=== PATIENT | female | born 1960 | race Two or more races ===

== ENCOUNTER 2024-12-05 18:21 | Inpatient (IN) | payer OTHER ==
[~2024-12-05] VITALS: Ht 154.9 cm; Wt 70.0 kg
--- NOTE | 2024-12-05 19:46 | ED.PDOC ---
History of Present Illness HPI Comments 64 y/o F presents with c/c of back pain. Pain onset after sitting down and standing, immediately, back up. Pain radiates anteriorly from her right side. 10/10 in severity. Worse with movement. Sharp in quality. 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 Family History Family History: Unknown Social History Smoker: Non-Smoker Alcohol: Denies ETOH Use Drugs: Denies Drug Use Neurological: reports: left sided numbness All Other Systems: Reviewed and Negative (As per HPI) Physical Exam General Appearance: No Apparent Distress, Normal HEENT: Pharynx Normal Neck: Full Range of Motion, Non-Tender Respiratory: Lungs Clear, No Respiratory Distress, Normal Breath Sounds Cardiovascular: No Edema, No JVD, No Murmur, No Gallop, Normal Peripheral Pulses, Regular Rate/Rhythm Breast Exam: Deferred Gastrointestinal: Diffuse (tenderness), No Organomegaly, No Pulsatile Mass, Normal Bowel Sounds, Soft, Other (neg cva tenderness ) Genitalia: Deferred Pelvic: Deferred Rectal: Deferred Extremities: No calf tenderness, Normal capillary refill, Normal range of motion, No pedal edema Musculoskeletal : Apperance: Normal Neurologic: Alert, No Motor Deficits, Normal Affect, Normal Mood, No Sensory Deficits Cerebellar Function: Normal Reflexes: NOT DONE Skin: Dry, Normal Color, Warm Lymphatic: No Adenopathy Was a procedure done? Was a procedure done?: No Differential Dx Considerations may include: fracture, DJD, sciatica, sprain, among others X-Ray, Labs, Meds, VS Vital Signs Date Time Temp Pulse Resp B/P (MAP) Pulse Ox O2 Delivery O2 Flow Rate FiO2 12/05/24 20:59 98 18 98 Room Air 12/05/24 20:59 98.0 98 19 154/64 (94) 98 98.0 12/05/24 18:23 98.3 108 18 157/92 97 98.3 Lab Test 12/05/24 22:01 12/05/24 21:02 12/05/24 19:43 Range/Units Troponin I High Sensitivity < 3 L < 3 L </=34 ng/L White Blood Count 8.1 4.4-10.8 10^3/uL Red Blood Count 4.29 4.0-5.20 10^6/uL Hemoglobin 12.3 12.2-16.2 g/dL Hematocrit 36.6 36.0-46.0 % Mean Corpuscular Volume 85.3 80.0-100.0 fL Mean Corpuscular Hemoglobin 28.6 28.0-32.0 pg Mean Corpuscular Hemoglobin Concent 33.6 32.0-36.0 g/dL Red Cell Distribution Width 13.9 11.8-14.3 % Platelet Count 290 140-450 10^3/uL Mean Platelet Volume 8.3 6.9-10.8 fL Neutrophils (%) (Auto) 61.2 37.0-80.0 % Lymphocytes (%) (Auto) 29.6 10.0-50.0 % Monocytes (%) (Auto) 6.8 0.0-12.0 % Eosinophils (%) (Auto) 1.5 0.0-7.0 % Basophils (%) (Auto) 0.9 0.0-2.0 % Neutrophils # (Auto) 5.0 1.6-8.6 10 ^3/uL Lymphocytes # (Auto) 2.4 0.4-5.4 10 ^3/uL Monocytes # (Auto) 0.6 0-1.3 10 ^3/uL Eosinophils # (Auto) 0.1 0-0.8 10 ^3/uL Basophils # (Auto) 0.1 0-0.2 10 ^3/uL Nucleated Red Blood Cells 0.0 % Sodium Level 138 136-145 mmol/L Potassium Level 4.0 3.5-5.1 mmol/L Chloride Level 102 98-107 mmol/L Carbon Dioxide Level 24 20-31 mmol/L Anion Gap 12 5-15 Blood Urea Nitrogen 16 9-23 mg/dL Creatinine 0.85 0.550-1.02 mg/dL Glomerular Filtration Rate Calc 77 >90 mL/min BUN/Creatinine Ratio 18.8 10.0-20.0 Serum Glucose 165 H 74-106 mg/dL Hemoglobin A1c 7.4 H <5.7 % A1C Calcium Level 9.7 8.7-10.4 mg/dL Phosphorus Level 3.3 2.4-5.1 mg/dL Magnesium Level 1.7 1.6-2.6 mg/dL Total Bilirubin 0.4 0.2-1.0 mg/dL Aspartate Amino Transferase (AST) 14 13-40 U/L Alanine Aminotransferase (ALT) 10 7-40 U/L Alkaline Phosphatase 121 H 46-116 U/L Total Protein 8.5 H 5.7-8.2 g/dL Albumin 5.0 H 3.2-4.8 g/dL Lipase 39 12-53 U/L Vitamin B12 Level 472 211-911 pg/mL Vitamin D 25-Hydroxy 29.2 L 30.0-100 ng/mL Thyroid Stimulating Hormone (TSH) 1.09 0.55-4.78 uIU/mL Hepatitis B Surface Antigen Pending Hepatitis C Antibody Pending Urine Color Colorless Yellow Urine Clarity Clear Clear Urine pH 6.0 5.0-9.0 Urine Specific [place] 1.009 1.001-1.035 Urine Protein Negative Negative Urine Ketones Negative Negative Urine Blood Negative Negative /uL Urine Nitrite 1+ H Negative Urine Bilirubin Negative Negative Urine Urobilinogen Normal Negative mg/dL Urine Leukocyte Esterase Negative Negative /uL Urine RBC 1 0 - 4 /hpf Urine Microscopic WBC 3 0-5 /HPF Urine Squamous Epithelial Cells Few <5 /hpf Urine Bacteria Many H None Seen /hpf Urine Glucose 4+ H Normal mg/dL Urine Opiates Screen Neg NEGATIVE Urine Fentanyl Screen Neg NEGATIVE Urine Barbiturates Screen Neg NEGATIVE Urine Phencyclidine Screen Neg NEGATIVE Urine Amphetamines Screen Neg NEGATIVE Urine Benzodiazepines Screen Neg NEGATIVE Urine Cocaine Screen Neg NEGATIVE Urine Cannabinoids Screen Neg NEGATIVE Current Medications Medications (Trade) Dose Ordered Sig/[facility] Route Start Time Stop Time Status Last Admin Sodium Chloride 1,000 ml @ 1,000 mls/hr Q1H ONCE IV 12/05/24 20:45 12/05/24 21:44 DC 12/05/24 21:04 Ondansetron HCl (Zofran) 4 mg ONCE ONCE IM 12/05/24 20:45 12/05/24 20:46 DC 12/05/24 22:37 Ceftriaxone Sodium 50 ml @ 100 mls/hr ONCE ONCE IV 12/05/24 21:30 12/05/24 21:59 DC 12/05/24 22:38 Morphine Sulfate 4 mg ONCE ONCE IV 12/05/24 21:30 12/05/24 21:31 DC 12/05/24 22:37 [facility] [id number] [id number] Ph: [phone] DIAGNOSTIC IMAGING Diagnostic Imaging Report : [id number] Signed PATIENT: NATHALIA MOORE ACCT: [id number] UNIT: [id number] : 1960 LOC: ER ROOM / BED: / AGE / SEX: 64 / F ADM STATUS: REG ER SERVICE 31 ORDERING PHYSICIAN: DIANNA GREEN PROCEDURE(s): ABPL - CT AB PEL WO CON-NO ORAL OR IV REASON: diffuse abd pain ORDER NUMBER(s): [id number], ACCESSION NUMBER(s): [id number] Exam: CT CT AB PEL WO CON-NO ORAL OR IV History: diffuse abd pain Comparison Study: None TECHNIQUE: Multidetector CT of the abdomen AND PELVIS without IV contrast. Axial, coronal and sagittal multiplanar reformats were obtained from the axial data set by the technologist. Radiation Dose Information: CT Dose: CTDI volume is 11.54 mGy. Dose-length product is 598.67 mGy*cm FINDINGS: Bibasilar scarring with bronchiectasis. Heart size is within normal limits. Trace pericardial effusion. Liver, spleen, gallbladder, and adrenal glands are unremarkable. 1 cm nodular lesion abutting the pancreatic tail which may represent a small splenule with an exophytic pancreatic lesion not completely excluded. Otherwise, pancreas is unremarkable. Kidneys, ureters and urinary bladder are unremarkable. Uterine wall calcification. Otherwise, uterus and adnexa unremarkable. Gaseous distention of the distal esophagus. Mild gastric wall thickening is most likely from inadequate distention. Small bowel loops are unremarkable. Appendix is unremarkable. Large amount of fecal material within the ascending and transverse colons with small to moderate amount of fecal material within the remainder of the colon. No evidence of intraperitoneal free air or free fluid. No evidence of aortic aneurysm. Mild atherosclerotic calcification of the aorta. No significant lymphadenopathy. Small fat containing umbilical hernia. Minimal body wall wall edema. No evidence of acute osseous abnormalities. IMPRESSION: No evidence of acute abdominopelvic abnormalities. 1 cm nodular lesion abutting the pancreatic tail which may represent a small sp lenule with an exophytic pancreatic lesion not completely excluded. Trace pericardial effusion. Bibasilar fibrotic changes. ATED BY: SILVINA HOLT DO DICTATED DATE/TIME: 12/05/242110 SIGNED BY: SILVINA HOLT DO SIGNED DATE/TIME: 12/05/242110 CC: X-Ray, Labs, Meds, VS Comment MPRESSION: No evidence of acute abdominopelvic abnormalities. 1 cm nodular lesion abutting the pancreatic tail which may represent a small splenule with an exophytic pancreatic lesion not completely excluded. Trace pericardial effusion. Bibasilar fibrotic changes. Time of 1ST Reevaluation: 20:10 Reevaluation 1ST: Unchanged Time of 2ND Reevaluation: 21:28 Reevaluation 2ND: Unchanged Patient Education/Counseling: Treatment, Need For Follow Up Family Education/Counseling: No Family Present SEPSIS Sepsis Screen Date sepsis recognized/suspect: Dec 05, 2024 Time Sepsis recognized/suspect: 1825 Recent Procedure: No On Antibiotic Therapy: No Respiratory Rate >20: No Heart Rate >90: Yes Temp<36 C (96.8 F) or >38.3 C: No SBP <90 or MAP <65 mmHG: No New Acute Mental Status Change: No Is the patient on CPAP, BIPAP,: No Physician Orders Ct Ab Pel Wo Con-No Oral Or Iv (12/05/24 20:32) Electrocardigram (12/05/24 20:46) Electrocardigram (12/05/24 21:46) Urine Bacterial Culture (12/05/24 21:33) Vital Signs Date Time Temp Pulse Resp B/P (MAP) Pulse Ox O2 Delivery O2 Flow Rate FiO2 12/05/24 20:59 98 18 98 Room Air 12/05/24 20:59 98.0 98 19 154/64 (94) 98 98.0 12/05/24 18:23 98.3 108 18 157/92 97 98.3 Laboratory Tests Test 12/05/24 21:02 White Blood Count 8.1 10^3/uL (4.4-10.8) Medications Medications Dose Ordered Sig/Roberto Route Start Time Stop Time Status Last Admin Dose Admin Ceftriaxone Sodium 50 ml @ 100 mls/hr ONCE ONCE IV 12/05/24 21:30 12/05/24 21:59 DC 12/05/24 22:38 Morphine Sulfate 4 mg ONCE ONCE IV 12/05/24 21:30 12/05/24 21:31 DC 12/05/24 22:37 Ondansetron HCl 4 mg ONCE ONCE IM 12/05/24 20:45 12/05/24 20:46 DC 12/05/24 22:37 Sodium Chloride 1,000 ml @ 1,000 mls/hr Q1H ONCE IV 12/05/24 20:45 12/05/24 21:44 DC 12/05/24 21:04 Departure 1 Departure Time of Disposition: 21:22 Impression: Primary Impression: Lesion of pancreas Additional Impressions: Cystitis without hematuria Pericardial effusion Intractable abdominal pain Disposition: ADMITTED INPATIENT Condition: Stable Discharged With: Spouse Critical Care Note Critical Care Time?: No Stability Stability form required: No Heart Score Heart Score: Heart Score Response (Comments) Value History N/A 0 EKG N/A 0 Age N/A 0 Risk Factors N/A 0 Troponin N/A 0 Total 0 I personally scribed for ER ([email or web address]) on 12/05/24 at 19:46. Electronically submitted by Bereket Villegas ([email or web address]). I personally scribed for ER ([email or web address]) on 12/05/24 at 21:18. Electronically submitted by Trisha Gerard ([email or web address]). ER Dec 05, 2024 19:46 DIANNA GREEN [facility] Dec 05, 2024 21:23
[2024-12-05 20:15] LABS: Urine Protein, UAD Negative (Negative)
[2024-12-05] MEDS ORDERED: MORPHINE SULFATE INJ 2 MG/ml SYRG IV ONE (20:45)
[2024-12-05] MEDS: SODIUM CHLORIDE 0.9% 1,000 ML IV ONE (21:04)
[2024-12-05 21:10] LABS: Hematocrit 36.6 % (36.0-46.0); Hemoglobin 12.3 g/dL (12.2-16.2); Mean Corpuscular Hemoglobin 28.6 pg (28.0-32.0); Mean Corpuscular Volume 85.3 fL (80.0-100.0); Nucleated Red Blood Cells % 0.0 %
--- NOTE | 2024-12-05 21:14 | DVH ---
Exam: CT CT AB PEL WO CON-NO ORAL OR IV History: diffuse abd pain Comparison Study: None TECHNIQUE: Multidetector CT of the abdomen AND PELVIS without IV contrast. Axial, coronal and sagitta l multiplanar reformats were obtained from the axial data set by the technologist. Radiation Dose Information: CT Dose: CTDI volume is 11.54 mGy. Dose-length product is 598.67 mGy*cm FINDINGS: Bibasilar scarring with bronchiectasis. Heart size is within normal limits. Trace pericardial effusi on. Liver, spleen, gallbladder, and adrenal glands are unremarkable. 1 cm nodular lesion abutting the pa ncreatic tail which may represent a small splenule with an exophytic pancreatic lesion not completely excluded. Otherwise, pancreas is unremarkable. Kidneys, ureters and urinary bladder are unremarkable. Uterine wall calcification. Otherwise, uterus and adnexa unremarkable. Gaseous distention of the distal esophagus. Mild gastric wall thickening is most likely from inadequa te distention. Small bowel loops are unremarkable. Appendix is unremarkable. Large amount of fecal m aterial within the ascending and transverse colons with small to moderate amount of fecal material wi thin the remainder of the colon. No evidence of intraperitoneal free air or free fluid. No evidence of aortic aneurysm. Mild atherosclerotic calcification of the aorta. No significant lymphadenopathy. Small fat containing umbilical hernia. Minimal body wall wall edema. No evidence of acute osseous ab normalities. IMPRESSION: No evidence of acute abdominopelvic abnormalities. 1 cm nodular lesion abutting the pancreatic tail which may represent a small splenule with an exophyt ic pancreatic lesion not completely excluded. Trace pericardial effusion. Bibasilar fibrotic changes.
[2024-12-05 21:26] LABS: Alanine Aminotransferase 10 U/L (7-40); Anion Gap 12 (5-15); BUN/Creatinine Ratio 18.8 (10.0-20.0); Bilirubin, Total 0.4 mg/dL (0.2-1.0); Blood Urea Nitrogen 16 mg/dL (9-23); Calcium 9.7 mg/dL (8.7-10.4); Carbon Dioxide 24 mmol/L (20-31); Chloride 102 mmol/L (98-107); Lipase 39 U/L (12-53); Potassium 4.0 mmol/L (3.5-5.1); Sodium 138 mmol/L (136-145)
[2024-12-05 21:28] LABS: Albumin 5.0 g/dL (3.2-4.8); Alkaline Phosphatase 121 U/L (46-116); Glucose 165 mg/dL (74-106); Total Protein 8.5 g/dL (5.7-8.2)
[2024-12-05 21:56] LABS: Magnesium 1.7 mg/dL (1.6-2.6)
[2024-12-05] MEDS ORDERED: ONDANSETRON HCL 4 MG/2 ML VIAL IV PRN (22:30)
[2024-12-05] MEDS ORDERED: DEXTROSE (50%) 50ML SYRG IV PRN (22:30)
[2024-12-05 22:37] LABS: Barbiturate Scree,Urine Neg (NEGATIVE); Opiate Scree,Urine Neg (NEGATIVE)
[2024-12-05] MEDS: MORPHINE SULFATE 4 MG/ML SYR/VIAL IV ONE (22:37)
[2024-12-05] MEDS: ONDANSETRON HCL 4 MG/2 ML VIAL IM ONE (22:37)
[2024-12-05 22:38] LABS: Amphetamine Screen, Urine Neg (NEGATIVE); Benzodiazephine Screen, Urine Neg (NEGATIVE); Cannabinoid Screen, Urine Neg (NEGATIVE); Cocaine Screen, Urine Neg (NEGATIVE); Phencyclidine Screen, Urine Neg (NEGATIVE)
--- NOTE | 2024-12-05 23:18 | DVHHPRES ---
History of Present Illness Resident Creating Document: DAQUAN BAILEY RESIDENT History of Present Illness Ms. Oglesby is a 64 year old female with PMHx of type 2 diabetes mellitus, hyperlipidemia, hypertension, cataracts s/p bilateral surgery, UTIs and urinary incontinence, who presented to the ED with chief complaint of back pain. She reports she began to have left-sided abdominal pain described as sharp, in epigastrium, radiating towards the left flank region, 8/10 intensity, aggravated by bending over, without relieving factors. Yesterday she began to have pain radiating to the right flank as well. Additionally refers febrile sensation and urinary tenesmus. Denies nausea, vomiting, dysuria, urinary frequency, diaphoresis, chest pain, and palpitations. Patient states she has had 2 previous UTIs requiring hospitalization (15 [required home IV antibiotics] and 5 years ago respectively). Due to persistence of pain she saw care at the emergency department. On evaluation in the ED, the patient was afebrile, mildly tachycardic, and hypertensive. Initial labs show CBC within normal range, hyperglycemia, and ALP 121. UA is suggestive of UTI. Abdominal CT shows no evidence of acute abdominopelvic abnormalities. She was started on IV fluids, IV pain medication, and IV antibiotics. She was admitted for further workup and management. Cardiovascular: HTN, hyperipidemia Renal/: Other (Urinary incontinence) Endocrine: Diabetes Past Surgical History: Cataract Removal, , Other (Trigger finger repair) Family History: None Smoke: No ALCOHOL: none Drugs: None Lives: with Family Domestic Violence: Neg Review of Systems Review of Systems Constitutional: Denies weight loss, fever and chills. HEENT: Denies changes in vision and hearing. Respiratory: Denies shortness of breath and cough Cardiovascular: Denies chest discomfort or palpitations GI: Refers abdominal pain, Denies abdominal distention, diarrhea : Refers urinary tenesmus, Denies dysuria and urinary frequency. Musculoskeletal: Refers flank pain Skin: Denies rash and pruritus. Neurological: denies dizziness headache vision or hearing problems Allergies: Coded Allergies: NO KNOWN ALLERGIES (Unverified , 12/05/24) Medications Current Medications Medications Dose Ordered Sig/Roberto Route Start Time Stop Time Status Last Admin Dose Admin Acetaminophen 325 mg Q4HP PRN PO 12/05/24 22:30 Enoxaparin Sodium 40 mg DAILY SC 12/06/24 10:00 Ceftriaxone Sodium 50 ml @ 100 mls/hr DAILY@09 IV 12/06/24 09:00 Atorvastatin Calcium 20 mg HS PO 12/06/24 22:00 Lisinopril 5 mg DAILY PO 12/06/24 10:00 Acetaminophen/ Hydrocodone Bitart 1 tab Q6HPRN PRN PO 12/05/24 22:30 Oxybutynin Chloride 5 mg Q12HR PO 12/06/24 10:00 Diagnostic Test (Pha) 1 strip ACHS 12/06/24 07:00 Insulin Human Regular ACHS SC 12/06/24 07:00 Dextrose 50 ml UD PRN IV 12/05/24 22:30 Ondansetron HCl 4 mg Q4HPRN PRN IV 12/05/24 22:30 Exam Vital Signs Vital Signs Date Time Temp Pulse Resp B/P (MAP) Pulse Ox O2 Delivery O2 Flow Rate FiO2 12/05/24 22:59 85 14 124/68 (86) 92 12/05/24 20:59 Room Air 12/05/24 20:59 98.0 98.0 Exam General: The patient alert and oriented in person place and time. Patient following commands HEENT: Normocephalic, atraumatic, normal reactive pupils, EOM intact, pink conjunctiva, pink moist mucous membrane Respiratory/pulmonary: Bilateral chest expansion, no pain on palpation of chest wall, clear lungs bilaterally, vesicular murmurs present in almost all lung duke, no associated crackles or wheezes. Cardiovascular: Normal RRR, normal S1 and S2, no murmurs Abdomen: Abdomen nondistended, normal bowel sounds, soft, pain to palpation in upper abdominal quadrant, bilateral CVA tenderness, no palpable masses. Extremities: No deformities, there is no peripheral edema present at the lower extremities, normal pulses Skin: No rashes or pruritus, there is no sacral edema present at this time. Neurological: Intact cranial nerves with no focal neurologic deficits Labs/Xrays Labs Test 12/05/24 22:01 12/05/24 21:02 12/05/24 19:43 Range/Units Troponin I High Sensitivity < 3 L </=34 ng/L White Blood Count 8.1 4.4-10.8 10^3/uL Red Blood Count 4.29 4.0-5.20 10^6/uL Hemoglobin 12.3 12.2-16.2 g/dL Hematocrit 36.6 36.0-46.0 % Mean Corpuscular Volume 85.3 80.0-100.0 fL Mean Corpuscular Hemoglobin 28.6 28.0-32.0 pg Mean Corpuscular Hemoglobin Concent 33.6 32.0-36.0 g/dL Red Cell Distribution Width 13.9 11.8-14.3 % Platelet Count 290 140-450 10^3/uL Mean Platelet Volume 8.3 6.9-10.8 fL Neutrophils (%) (Auto) 61.2 37.0-80.0 % Lymphocytes (%) (Auto) 29.6 10.0-50.0 % Monocytes (%) (Auto) 6.8 0.0-12.0 % Eosinophils (%) (Auto) 1.5 0.0-7.0 % Basophils (%) (Auto) 0.9 0.0-2.0 % Neutrophils # (Auto) 5.0 1.6-8.6 10 ^3/uL Lymphocytes # (Auto) 2.4 0.4-5.4 10 ^3/uL Monocytes # (Auto) 0.6 0-1.3 10 ^3/uL Eosinophils # (Auto) 0.1 0-0.8 10 ^3/uL Basophils # (Auto) 0.1 0-0.2 10 ^3/uL Nucleated Red Blood Cells 0.0 % Sodium Level 138 136-145 mmol/L Potassium Level 4.0 3.5-5.1 mmol/L Chloride Level 102 98-107 mmol/L Carbon Dioxide Level 24 20-31 mmol/L Anion Gap 12 5-15 Blood Urea Nitrogen 16 9-23 mg/dL Creatinine 0.85 0.550-1.02 mg/dL Glomerular Filtration Rate Calc 77 >90 mL/min BUN/Creatinine Ratio 18.8 10.0-20.0 Serum Glucose 165 H 74-106 mg/dL Hemoglobin A1c 7.4 H <5.7 % A1C Calcium Level 9.7 8.7-10.4 mg/dL Phosphorus Level 3.3 2.4-5.1 mg/dL Magnesium Level 1.7 1.6-2.6 mg/dL Total Bilirubin 0.4 0.2-1.0 mg/dL Aspartate Amino Transferase (AST) 14 13-40 U/L Alanine Aminotransferase (ALT) 10 7-40 U/L Alkaline Phosphatase 121 H 46-116 U/L Total Protein 8.5 H 5.7-8.2 g/dL Albumin 5.0 H 3.2-4.8 g/dL Lipase 39 12-53 U/L Vitamin B12 Level 472 211-911 pg/mL Vitamin D 25-Hydroxy 29.2 L 30.0-100 ng/mL Thyroid Stimulating Hormone (TSH) 1.09 0.55-4.78 uIU/mL Urine Color Colorless Yellow Urine Clarity Clear Clear Urine pH 6.0 5.0-9.0 Urine Specific [place] 1.009 1.001-1.035 Urine Protein Negative Negative Urine Ketones Negative Negative Urine Blood Negative Negative /uL Urine Nitrite 1+ H Negative Urine Bilirubin Negative Negative Urine Urobilinogen Normal Negative mg/dL Urine Leukocyte Esterase Negative Negative /uL Urine RBC 1 0 - 4 /hpf Urine Microscopic WBC 3 0-5 /HPF Urine Squamous Epithelial Cells Few <5 /hpf Urine Bacteria Many H None Seen /hpf Urine Glucose 4+ H Normal mg/dL Urine Opiates Screen Neg NEGATIVE Urine Fentanyl Screen Neg NEGATIVE Urine Barbiturates Screen Neg NEGATIVE Urine Phencyclidine Screen Neg NEGATIVE Urine Amphetamines Screen Neg NEGATIVE Urine Benzodiazepines Screen Neg NEGATIVE Urine Cocaine Screen Neg NEGATIVE Urine Cannabinoids Screen Neg NEGATIVE SEPSIS Sepsis Screen Date sepsis recognized/suspect: Dec 05, 2024 Time Sepsis recognized/suspect: 1825 Recent Procedure: No On Antibiotic Therapy: No Respiratory Rate >20: No Heart Rate >90: Yes Temp<36 C (96.8 F) or >38.3 C: No SBP <90 or MAP <65 mmHG: No New Acute Mental Status Change: No Is the patient on CPAP, BIPAP,: No Physician Orders Ct Ab Pel Wo Con-No Oral Or Iv (12/05/24 20:32) Electrocardigram (12/05/24 20:46) Electrocardigram (12/05/24 21:46) Troponin-I Hs (12/05/24 23:46) Urine Bacterial Culture (12/05/24 21:33) Complete Blood Count (12/06/24 04:00) Basic Metabolic Panel (12/06/24 04:00) Admit (12/05/24 22:17) Allergies (12/05/24 22:17) Code Status (12/05/24 22:17) Acetaminophen Tablet (Tylenol Tablet) (12/05/24 22:30) Enoxaparin Sodium (Lovenox) (12/06/24 10:00) Condition: Stable (12/05/24 22:17) Stat Ekg For Chest Pain (12/05/24 22:17) Notify Of Changes From Base (12/05/24 22:17) Emergency Dysrhythmia Protocol (12/05/24 22:17) Rhythm Strips Once Every Shift (12/05/24 22:17) Ceftriaxone 1gm/50ml (Rocephin) (12/06/24 09:00) Atorvastatin (Lipitor) (12/06/24 22:00) Lisinopril Tablet (Zestril Tablet) (12/06/24 10:00) Hydrocodone-Acet 5/325mg Tab (Marcy 532 (12/05/24 22:30) Oxybutynin Chloride Tablet (Ditropan Tab (12/06/24 10:00) Glucose Blood (Accu-Chek Comfort Curve T (12/06/24 07:00) Insulin R (Human) (Insulin R) (12/06/24 07:00) Dextrose 50% Syringe (12/05/24 22:30) Consistent Carb(Ccho)Diabetes (12/06/24 Breakfast) Ondansetron Hcl (Zofran) (12/05/24 22:30) Vital Signs Date Time Temp Pulse Resp B/P (MAP) Pulse Ox O2 Delivery O2 Flow Rate FiO2 12/05/24 22:59 85 14 124/68 (86) 92 12/05/24 22:37 88 16 149/75 12/05/24 20:59 98 18 98 Room Air 12/05/24 20:59 98.0 98 19 154/64 (94) 98 98.0 12/05/24 18:23 98.3 108 18 157/92 97 98.3 Laboratory Tests Test 12/05/24 21:02 White Blood Count 8.1 10^3/uL (4.4-10.8) Medications Medications Dose Ordered Sig/Roberto Route Start Time Stop Time Status Last Admin Dose Admin Ceftriaxone Sodium 50 ml @ 100 mls/hr ONCE ONCE IV 12/05/24 21:30 12/05/24 21:59 DC 12/05/24 22:38 100 MLS/HR Morphine Sulfate 4 mg ONCE ONCE IV 12/05/24 21:30 12/05/24 21:31 DC 12/05/24 22:37 4 MG Ondansetron HCl 4 mg ONCE ONCE IM 12/05/24 20:45 12/05/24 20:46 DC 12/05/24 22:37 4 MG Sodium Chloride 1,000 ml @ 1,000 mls/hr Q1H ONCE IV 12/05/24 20:45 12/05/24 21:44 DC 12/05/24 21:04 1,000 MLS/HR Assessment/Plan Assessment/Plan Assessment and Plan: Complicated UTI R/o Pyelonephritis - NS 1000 cc bolus once - Morphine 4 mg IV once - Morphine 2 mg IV once - Ceftriaxone 1 g IV daily - Marcy 5/325 mg q 6 hours PRN - Acetaminophen 325 mg PO q 4 hours PRN - Urine cultures have been ordered Uncontrolled type 2 diabetes mellitus with hyperglycemia, HbA1c 7.4 - Mild SSI - Accu-Cheks - Carbohydrate Consistent Diet Hypertension - Monitor BP - Continue lisinopril 5 mg PO daily Hyperlipidemia - Continue Atorvastatin 20 mg PO daily Urinary Incontinence - Oxybutyin 5 mg q12 hrs PO Diet: Carbohydrate consistent diet DVT prophylaxis: Enoxaparin 40 mg SC daily GI prophylaxis: Not indicated Case discussed with Dr. Devries Goals of care discussed with the patient and her son at bedside over 27 minutes. DNR/DNI. Plan discussed with: Patient, Son, Other (Nurses) My Orders Orders - DAQUAN BAILEY RESIDENT Procedure Category Date Status Time Urine Bacterial JESI 12/05/24 In Process Culture 21:33 Complete Blood Count LAB 12/06/24 Verified 04:00 Basic Metabolic Panel LAB 12/06/24 Verified 04:00 Admit ADMIT 12/05/24 Transmitted 22:17 Allergies ALFONSO 12/05/24 In Process 22:17 Code Status CODE 12/05/24 Transmitted 22:17 Acetaminophen Tablet PHA 12/05/24 In Process (Tylenol Tablet) 22:30 Enoxaparin Sodium PHA 12/06/24 In Process (Lovenox) 10:00 Condition: Stable ALFONSO 12/05/24 In Process 22:17 Stat Ekg For Chest ALFONSO 12/05/24 In Process Pain 22:17 Notify Of Changes ALFONSO 12/05/24 In Process From Base 22:17 Emergency Dysrhythmia ALFONSO 12/05/24 In Process Protocol 22:17 Rhythm Strips Once ALFONSO 12/05/24 In Process Every Shift 22:17 Ceftriaxone 1gm/50ml PHA 12/06/24 In Process (Rocephin) 09:00 Atorvastatin (Lipitor) PHA 12/06/24 In Process 22:00 Lisinopril Tablet PHA 12/06/24 In Process (Zestril Tablet) 10:00 Hydrocodone-Acet PHA 12/05/24 In Process 5/325mg Tab (Marcy 22:30 Oxybutynin Chloride PHA 12/06/24 In Process Tablet (Ditropan Tab 10:00 Glucose Blood PHA 12/06/24 In Process (Accu-Chek Comfort 07:00 Insulin R (Human) PHA 12/06/24 In Process (Insulin R) 07:00 Dextrose 50% Syringe PHA 12/05/24 In Process 22:30 Consistent DIET 12/06/24 Transmitted Carb(Ccho)Diabetes Breakfast Ondansetron Hcl PHA 12/05/24 In Process (Zofran) 22:30 Date of Service: Dec 05, 2024 Billing Provider: KAT THAPA MD Common Visit Codes: [id number] INP/OBS CARE (HIGH) Secondary Visit Codes: [id number] CARE PLAN 30 MINUTES DAQUAN BAILEY RESIDENT Dec 05, 2024 23:18 TRINIDAD NAVAS RESIDENT Dec 06, 2024 00:46
[2024-12-05 23:28] VITALS: BP 142/71; PULSE 81; RESP 18; RESP 19; TEMP 98.5; O2SAT 96
[2024-12-05 23:29] VITALS: PULSE 81; RESP 19; O2SAT 96
[2024-12-06] VITALS (8 sets, daily range): BP systolic 105–126; BP diastolic 59–84; PULSE 63–84; RESP 16–19; TEMP 97.2–97.9; O2SAT 2–98
[2024-12-06 00:18] LABS: Hematocrit 35.9 % (36.0-46.0); Hemoglobin 12.0 g/dL (12.2-16.2); Mean Corpuscular Hemoglobin 28.4 pg (28.0-32.0); Mean Corpuscular Volume 85.2 fL (80.0-100.0); Nucleated Red Blood Cells % 0.1 %
[2024-12-06 00:28] LABS: Chloride 105 mmol/L (98-107); Potassium 4.1 mmol/L (3.5-5.1); Sodium 140 mmol/L (136-145)
[2024-12-06 00:29] LABS: Anion Gap 11 (5-15); Carbon Dioxide 24 mmol/L (20-31)
[2024-12-06 00:30] LABS: Calcium 9.0 mg/dL (8.7-10.4)
[2024-12-06 00:35] LABS: BUN/Creatinine Ratio 21.6 (10.0-20.0); Blood Urea Nitrogen 16 mg/dL (9-23)
[2024-12-06 00:46] LABS: Glucose 144 mg/dL (74-106)
[2024-12-06] MEDS ORDERED: LISI-275 PO (04:01)
[2024-12-06] MEDS ORDERED: GLYB5TAB8 PO (04:01)
[2024-12-06] MEDS ORDERED: METF-370 PO (04:01)
[2024-12-06] MEDS ORDERED: TRAZ-228 PO (04:01)
[2024-12-06] MEDS ORDERED: OXYB5TAB14 PO (04:05)
[2024-12-06] MEDS: ACCU-CHEK COMFORT CURVE STRIP VI SCH (06:22)
[2024-12-06] MEDS: InsuLIN REG 1unit/0.01ml Soln (100units/ml) SC SCH (06:22)
[2024-12-06 08:41] LABS: Hematocrit 32.4 % (36.0-46.0); Hemoglobin 10.8 g/dL (12.2-16.2); Mean Corpuscular Hemoglobin 28.4 pg (28.0-32.0); Mean Corpuscular Volume 85.1 fL (80.0-100.0); Nucleated Red Blood Cells % 0.0 %
[2024-12-06] MEDS: LISINOPRIL 5 MG TAB PO SCH (09:25)
[2024-12-06] MEDS: OXYBUTYNIN CHL 5 MG TAB PO SCH (09:25)
[2024-12-06] MEDS: ACETAMINOPHEN 325 MG TAB PO PRN (09:59)
[2024-12-06] MEDS: ENOXAPARIN SOD 40 MG/0.4 ML SYRINGE SC SCH (10:00)
--- NOTE | 2024-12-06 11:43 | DVHPNRES ---
Progress Note Date Seen: Dec 06, 2024 Resident Creating Document: LAUREEN ALVAREZ Medical Necessity Reason Pt with a Central, PICC or Fol: No Subjective Review of Systems Patient is a 64-year-old female with past medical history of type 2 diabetes mellitus, hyperlipidemia, hypertension, urinary incontinence, recurrent UTIs, presented to [facility] ED with complaint of abdominal and back pain. She reports that 5 days ago she began experiencing sharp left-sided abdominal pain in the epigastric region, radiating to the left flank and back, rated 8/10, aggravated by bending over and without relieving factors. Yesterday, the pain began radiating to the right flank as well. She also noted a febrile sensation and urinary tenesmus. She denies nausea, vomiting, dysuria, urinary frequency, diarrhea, burning with urination, blood in stool, diaphoresis, chest pain, and palpitations. She has a history of 2 prior UTIs requiring hospitalization, including one episode 15 years ago that required home IV antibiotics. On ED evaluation, she was afebrile, mildly tachycardic, and hypertensive. Labs revealed hyperglycemia, ALP 121, and a UA suggestive of UTI. CBC was within normal limits. Abdominal CT showed 1 cm nodular lesion abutting the pancreatic tail which may represent a small splenule with an exophytic pancreatic lesion not completely excluded. Past medical history: HTN, hyperipidemia, Urinary incontinence, Diabetes, Past surgical history: Bilateral cataract surgery, Trigger finger repair Family history: Mother: Thyroid cancer, Father: Pancreatic cancer Social & Personal history: Denies smoking, drinking alcohol, recreational drugs Allergies: None Patient seen and examined at bedside. Patient is alert and oriented to time, place person and responding to all questions. Eyes: No Pain, No Vision change, No Conjunctivae inflammation, No Eyelid inflammation, No Other, No Redness ENT: No Ear pain, No Ear discharge, No Nose pain, No Nose discharge, No Nose congestion, No Mouth pain, No Mouth swelling, No Throat pain, No Throat swelling, No Other Cardiovascular: No Chest Pain, No Palpitations, No Orthopnea, No Paroxysmal No Dyspnea, No Edema, No Lt Headedness, No Other Respiratory: No Cough, No Dry, No Shortness of breath, No SOB with exertion, No Wheezing, No Hemoptysis, No Pleuritic Pain, No Sputum, No Other Gastrointestinal: No Nausea, No Vomiting, Abdominal Pain, No Diarrhea, No Constipation, No Melena, No Hematochezia, No Other Genitourinary: No Dysuria, No Frequency, No Incontinence, No Hematuria, No Retention, No Other Musculoskeletal: No other, No neck pain, No shoulder pain, No arm pain, back pain, No hand pain, No leg pain, No foot pain Skin: No Rash, No Lesions, No Jaundice, No Bruising, No Other Objective vital signs Vital Sign Date Time Temp Pulse Resp B/P (MAP) Pulse Ox O2 Delivery O2 Flow Rate FiO2 12/06/24 09:25 105/59 12/06/24 08:52 97.9 63 16 98 97.9 12/05/24 23:29 Nasal Cannula* 2 28 Total Intake and Output 12/05/24 12/05/24 12/06/24 15:00 23:00 07:00 Intake Total 290 ml Balance 290 ml medications Current Medications Medications Dose Ordered Sig/Roberto Route Start Time Stop Time Status Last Admin Dose Admin Acetaminophen 325 mg Q4HP PRN PO 12/05/24 22:30 12/06/24 09:59 325 MG Enoxaparin Sodium 40 mg DAILY SC 12/06/24 10:00 Ceftriaxone Sodium 50 ml @ 100 mls/hr DAILY@09 IV 12/06/24 09:00 12/06/24 09:25 100 MLS/HR Atorvastatin Calcium 20 mg HS PO 12/06/24 22:00 Lisinopril 5 mg DAILY PO 12/06/24 10:00 12/06/24 09:25 5 MG Acetaminophen/ Hydrocodone Bitart 1 tab Q6HPRN PRN PO 12/05/24 22:30 Oxybutynin Chloride 5 mg Q12HR PO 12/06/24 10:00 12/06/24 09:25 5 MG Diagnostic Test (Pha) 1 strip ACHS 12/06/24 07:00 12/06/24 06:22 1 STRIP Insulin Human Regular ACHS SC 12/06/24 07:00 12/06/24 06:22 2 UNITS Dextrose 50 ml UD PRN IV 12/05/24 22:30 Ondansetron HCl 4 mg Q4HPRN PRN IV 12/05/24 22:30 Lidocaine 1 patch DAILY TOP 12/07/24 10:00 UNV Cyclobenzaprine HCl 5 mg Q8HPRN PRN PO 12/06/24 11:30 UNV Examination General: The patient alert and oriented in person place and time. Patient following commands HEENT: Normocephalic, atraumatic, normal reactive pupils, EOM intact, pink conjunctiva, pink moist mucous membrane Respiratory/pulmonary: Bilateral chest expansion, no pain on palpation of chest wall, clear lungs bilaterally, vesicular murmurs present in almost all lung duke, no associated crackles or wheezes. Cardiovascular: Normal RRR, normal S1 and S2, no murmurs Abdomen: Abdomen nondistended, normal bowel sounds, soft, pain to palpation in upper abdominal quadrant, bilateral CVA tenderness, no palpable masses. Extremities: No deformities, there is no peripheral edema present at the lower extremities, normal pulses Skin: No rashes or pruritus, there is no sacral edema present at this time. Neurological: Intact cranial nerves with no focal neurologic deficits laboratory and microbiology Laboratory Tests 12/06/24 08:27 12/05/24 23:59 Test 12/05/24 23:59 Range/Units Serum Glucose 144 H 74-106 mg/dL Labs and/or images reviewed: Labs reviewed by me, Image(s) reviewed by me Problem List/Assessment/Plan Problem List/Assessment/Plan recurrent complicated UTI R/o Pyelonephritis - NS 1000 cc bolus once - Morphine 4 mg IV once - Morphine 2 mg IV once - Ceftriaxone 1 g IV daily - [place] 5/325 mg q 6 hours PRN - Acetaminophen 325 mg PO q 4 hours PRN - Urine cultures ordered Acute intractable abdominal pain and back pain Pancreatic nodule - Family history of pancreatic cancer - Abdominal CT: 1 cm nodular lesion abutting the pancreatic tail which may represent a small splenule with an exophytic pancreatic lesion not completely excluded. Trace pericardial effusion. - Cyclobenzaprine 5 mgq8h prn Uncontrolled type 2 diabetes mellitus with hyperglycemia, HbA1c 7.4 - Mild SSI - Accu-Cheks - Carbohydrate Consistent Diet Thyroid nodule - Family history of thyroid cancer - Ultrasound soft tissue head and neck: Right lobe of the thyroid measures 3.9 cm. Left lobe of the thyroid measures 4.1 cm. Multiple nodules. Essential hypertension - Monitor BP - Continue lisinopril 5 mg PO daily Hyperlipidemia - Continue Atorvastatin 20 mg PO daily Urinary Incontinence - Oxybutyin 5 mg q12 hrs PO Diet: Carbohydrate consistent diet PUD prophylaxis: Not indicated DVT prophylaxis: Enoxaparin 40 mg SC daily Goals of care: Full code, discussed for >16 minutes on 12/06/24 Plan discussed with patient Plan discussed with Dr. Yang Plan discussed with: Patient Date of Service: Dec 06, 2024 Billing Provider: LYDIA YANG MD Common Visit Codes: [id number] INP/OBS CARE(HIGH) LAUREEN ALVAREZ RESIDENT Dec 06, 2024 11:43 LYDIA YANG MD Dec 10, 2024 20:54
--- NOTE | 2024-12-06 13:30 | DVH ---
ULTRASOUND SOFT TISSUE HEAD AND NECK CLINICAL INDICATION: thyroid nodule TECHNIQUE: Multiple real time sonographic images of the thyroid were obtained. COMPARISON: Prior exam dated none FINDINGS: RIGHT LOBE OF THE THYROID: Masures 3.9 x 1.2 x 1.4 cm. Parenchyma is heterogeneous 2 nodules right lobe of the thyroid. #1) anechoic nodule measuring 8 x 6 x 3 mm, i anechoic broader fall margins are smooth, no echogenic foci. points=0; TI-RADS 1. Consider FNA when nodule becomes equal to or greater than 1.5 cm #2) cystic/solid, fall, hypoechoic smooth margins, no echogenic foci:points: 2 TI-RADS 2 LEFT LOBE OF THE THYROID: Measures approximately 0.1 X 1 X 1.5 CM cm. Heterogeneous #1) mixed cystic/solid points 2, hypoechoic, points2, wider than tall, ill-defined points=0, echogeni c foci, none;points= 4; consider FNA nodule is equal to or greater than 1.5 cm #2) cystic/solid, measures 1.15 x 0.1.2 cm, margins are smooth shape is broader than tall, no echogen ic foci; points=2; TI-RADS 2 ISTHMUS: Measures 0.5 cm. Parenchyma heterogeneous #1) measures 8 x 7 x 4 mm; appears solid, wider than tall, , margins are smooth; no echogenic foci; p oints 4; TI rads 4 recommend FNA lesion equal to or greater than 1.5 cm IMPRESSION: 1. Right lobe of the thyroid measures 3.9 cm. Left lobe of the thyroid measures 4.1 cm 2. Multiple nodules. 3. Recommend follow-up in 1 year [employer] TI-RADS Categories and Recommendations (2017): TR1: 0 points, Benign, No FNA TR2: 2 points, Not suspicious, No FNA TR3: 3 points, Mildly suspicious, FNA if > or = 2.5 cm, Follow if > or = 1.5 cm TR4: 4-6 points, Moderately Suspicious, FNA if > or = 1.5 cm, Follow if > or = 1.0 cm TR5: 7+ points, Highly Suspicious, FNA if > or = 1.0 cm, Follow if > or = 0.5 cm Follow-up ultrasound guidelines: TR5: yearly for 5 years, if no growth or change in TI-RADS level TR4: at 1, 2, 3 and 5 years, if no growth or change in TI-RADS level TR3: at 1, 3 and 5 years, if no growth or change in TI-RADS level If increased but below threshold for FNA, repeat in one year. Source: ACR Thyroid Imaging, Reporting and Data System (TI-RADS): White Paper of the ACR TI-RADS Committee. Truman et al., J Am Latoya Radiol 2017;14:587-595.
[2024-12-06] MEDS: CYCLOBENZAPRINE HCL 10 MG TAB PO PRN (14:09)
[2024-12-06] MEDS: LIDOCAINE 5% TOPICAL PATCH TOP ONE (14:09)
[2024-12-06] MEDS ORDERED: GADOTERATE MEG 7.5 MMOL/15ml INJ (0.5MMOL/ml) IV ONE (15:45)
[2024-12-06] MEDS: HYDROcodone-ACET 5/325MG TAB PO PRN (20:09)
[2024-12-06] MEDS: ATORVASTATIN 20 MG TAB PO SCH (21:19)
[2024-12-07] VITALS (8 sets, daily range): BP systolic 103–144; BP diastolic 62–90; PULSE 56–92; RESP 16–18; TEMP 97.5–98.3; O2SAT 2–99
[2024-12-07 06:44] LABS: Hematocrit 33.8 % (36.0-46.0); Hemoglobin 11.3 g/dL (12.2-16.2); Mean Corpuscular Hemoglobin 28.5 pg (28.0-32.0); Mean Corpuscular Volume 85.4 fL (80.0-100.0); Nucleated Red Blood Cells % 0.0 %
[2024-12-07 07:03] LABS: Chloride 106 mmol/L (98-107); Potassium 4.2 mmol/L (3.5-5.1); Sodium 142 mmol/L (136-145)
[2024-12-07 07:04] LABS: Anion Gap 10 (5-15); Calcium 9.1 mg/dL (8.7-10.4); Carbon Dioxide 26 mmol/L (20-31)
[2024-12-07 07:09] LABS: BUN/Creatinine Ratio 21.5 (10.0-20.0); Blood Urea Nitrogen 17 mg/dL (9-23); Glucose 84 mg/dL (74-106)
--- NOTE | 2024-12-07 07:35 | DVH ---
MRI Abdomen, Pre and Post Contrast Exam Date: 12/06/2024 03:46 PM Comparison: CT dated 12/05/2024 History: pancreatic mass, r/o malignancy Technique: Multisequence multiplanar MRI images of the abdomen were obtained without and with intravenous contra st. Findings: Liver: The liver is normal in size without focal lesions. Normal liver contour. Spleen: A 0.8 cm benign splenule is noted at the splenic hilum/pancreatic tail. Pancreas: The pancreas is normal in appearance without focal lesions. No pancreatic mass. Gallbladder and ducts: Gallbladder is normal in appearance. The cystic duct, right and left hepatic d ucts, common hepatic duct, and common bile ducts are unremarkable. The pancreatic duct is within norm al limits. Adrenal glands: Unremarkable. Kidneys: A left upper pole renal cyst measures 1.1 cm. Normal enhancement without suspicious lesions or hydronephrosis. Visualized bowel: Grossly unremarkable. Vasculature: Unremarkable. Lymphadenopathy: No evidence for lymphadenopathy. Ascites: Absent. Musculoskeletal: Bone marrow signal is normal. Additional Dependent atelectasis. IMPRESSION: No pancreatic mass. No acute abnormality.
--- NOTE | 2024-12-07 09:21 | ECG ---
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
[2024-12-07] MEDS: LIDOCAINE 5% TOPICAL PATCH TOP SCH (09:30)
--- NOTE | 2024-12-07 13:17 | DVH ---
CLINICAL INFORMATION: Cough. TECHNIQUE: Single AP portable chest radiograph was obtained. COMPARISON: None FINDINGS: Lungs: Atelectasis in the lung bases. No focal consolidation. No pneumothorax or pleural effusion. Cardiac: Heart size is within normal limits. Pulmonary vasculature: Unremarkable. Mediastinum/ghulam: Unremarkable. Bones: No acute osseous abnormality identified. Other: No other significant findings. IMPRESSION: 1. No evidence of acute disease in the chest. 2. Atelectasis in the lung bases.
--- NOTE | 2024-12-07 13:59 | DVHPNRES ---
Progress Note Date Seen: Dec 07, 2024 Resident Creating Document: PILI KNIGHT RESIDENT Medical Necessity Reason Pt with a Central, PICC or Fol: No Subjective Review of Systems atient is a 64-year-old female with past medical history of type 2 diabetes mellitus, hyperlipidemia, hypertension, urinary incontinence, recurrent UTIs, presented to [facility] ED with complaint of abdominal and back pain. She reports that 5 days ago she began experiencing sharp left-sided abdominal pain in the epigastric region, radiating to the left flank and back, rated 8/10, aggravated by bending over and without relieving factors. Yesterday, the pain began radiating to the right flank as well. She also noted a febrile sensation and urinary tenesmus. She denies nausea, vomiting, dysuria, urinary frequency, diarrhea, burning with urination, blood in stool, diaphoresis, chest pain, and palpitations. She has a history of 2 prior UTIs requiring hospitalization, including one episode 15 years ago that required home IV antibiotics. On ED evaluation, she was afebrile, mildly tachycardic, and hypertensive. Labs revealed hyperglycemia, ALP 121, and a UA suggestive of UTI. CBC was within normal limits. Abdominal CT showed 1 cm nodular lesion abutting the pancreatic tail which may represent a small splenule with an exophytic pancreatic lesion not completely excluded. Past medical history: HTN, hyperipidemia, Urinary incontinence, Diabetes, Past surgical history: Bilateral cataract surgery, Trigger finger repair Family history: Mother: Thyroid cancer, Father: Pancreatic cancer Social & Personal history: Denies smoking, drinking alcohol, recreational drugs Allergies: None The patient was seen and examined at bedside. Overnight events were reviewed. She reports having shortness of breath and chest tightness. ACS was ruled out by repeat EKGs and normal troponins 3 times. She denies any other complaints. Objective vital signs Vital Sign Date Time Temp Pulse Resp B/P (MAP) Pulse Ox O2 Delivery O2 Flow Rate FiO2 12/07/24 12:52 98.3 89 16 142/87 (105) 99 98.3 12/07/24 07:30 Nasal Cannula* 2 28 Total Intake and Output 12/06/24 12/06/24 12/07/24 15:00 23:00 07:00 Intake Total 100 ml 475 ml 570 ml Balance 100 ml 475 ml 570 ml medications Current Medications Medications Dose Ordered Sig/Roberto Route Start Time Stop Time Status Last Admin Dose Admin Acetaminophen 325 mg Q4HP PRN PO 12/05/24 22:30 12/06/24 09:59 325 MG Enoxaparin Sodium 40 mg DAILY SC 12/06/24 10:00 Ceftriaxone Sodium 50 ml @ 100 mls/hr DAILY@09 IV 12/06/24 09:00 12/07/24 09:29 100 MLS/HR Atorvastatin Calcium 20 mg HS PO 12/06/24 22:00 12/06/24 21:19 20 MG Lisinopril 5 mg DAILY PO 12/06/24 10:00 12/07/24 09:29 5 MG Acetaminophen/ Hydrocodone Bitart 1 tab Q6HPRN PRN PO 12/05/24 22:30 12/06/24 20:09 1 TAB Oxybutynin Chloride 5 mg Q12HR PO 12/06/24 10:00 12/07/24 09:29 5 MG Diagnostic Test (Pha) 1 strip ACHS 12/06/24 07:00 12/07/24 11:48 1 STRIP Insulin Human Regular ACHS SC 12/06/24 07:00 12/07/24 13:05 4 UNITS Dextrose 50 ml UD PRN IV 12/05/24 22:30 Ondansetron HCl 4 mg Q4HPRN PRN IV 12/05/24 22:30 Lidocaine 1 patch DAILY TOP 12/07/24 10:00 12/07/24 09:30 1 PATCH Cyclobenzaprine HCl 5 mg Q8HPRN PRN PO 12/06/24 11:30 12/06/24 14:09 5 MG Examination Examination General: The patient alert and oriented in person place and time. Patient following commands HEENT: Normocephalic, atraumatic, normal reactive pupils, EOM intact, pink conjunctiva, pink moist mucous membrane Respiratory/pulmonary: Bilateral chest expansion, no pain on palpation of chest wall, clear lungs bilaterally, vesicular murmurs present in almost all lung duke, no associated crackles or wheezes. Cardiovascular: Normal RRR, normal S1 and S2, no murmurs Abdomen: Abdomen nondistended, normal bowel sounds, soft, pain to palpation in upper abdominal quadrant, bilateral CVA tenderness, no palpable masses. Extremities: No deformities, there is no peripheral edema present at the lower extremities, normal pulses Skin: No rashes or pruritus, there is no sacral edema present at this time. Neurological: Intact cranial nerves with no focal neurologic deficits laboratory and microbiology Laboratory Tests 12/07/24 05:31 Test 12/07/24 05:31 Range/Units Serum Glucose 84 74-106 mg/dL Microbiology Date/Time Source Procedure Growth Status 12/05/24 23:59 Blood Blood Culture - Preliminary NO GROWTH AFTER 24 HOURS OF INCUBATION. Resulted 12/05/24 19:43 Voided Urine Urine Culture - Preliminary Resulted Labs and/or images reviewed: Labs reviewed by me, Image(s) reviewed by me Problem List/Assessment/Plan Problem List/Assessment/Plan Recurrent complicated UTI R/o Pyelonephritis - NS 1000 cc bolus once - Morphine 4 mg IV once - Morphine 2 mg IV once - Ceftriaxone 1 g IV daily - [place] 5/325 mg q 6 hours PRN - Acetaminophen 325 mg PO q 4 hours PRN - Urine cultures: Negative except mixed svitlana Acute intractable abdominal pain and back pain Pancreatic nodule - Family history of pancreatic cancer - Abdominal CT: 1 cm nodular lesion abutting the pancreatic tail which may represent a small splenule with an exophytic pancreatic lesion not completely excluded. Trace pericardial effusion. -MRI abdomen:No pancreatic mass.No acute abnormality. - Cyclobenzaprine 5 mgq8h prn Ruled out ACS EKG: No ischemic changes Troponin x3: Negative Uncontrolled type 2 diabetes mellitus with hyperglycemia, HbA1c 7.4 - Mild SSI - Accu-Cheks - Carbohydrate Consistent Diet Thyroid nodule - Family history of thyroid cancer - Ultrasound soft tissue head and neck: Right lobe of the thyroid measures 3.9 cm. Left lobe of the thyroid measures 4.1 cm. Multiple nodules. Essential hypertension - Monitor BP - Continue lisinopril 5 mg PO daily Hyperlipidemia - Continue Atorvastatin 20 mg PO daily Urinary Incontinence - Oxybutyin 5 mg q12 hrs PO Diet: Carbohydrate consistent diet PUD prophylaxis: Not indicated DVT prophylaxis: Enoxaparin 40 mg SC daily Goals of care: Full code, discussed for >16 minutes on 12/06/24 Plan discussed with patient Plan discussed with Dr. Khoury Plan discussed with: Patient, Other (RN) My Orders My Orders Orders - PILI KNIGHT Procedure Category Date Status Time Electrocardigram EKG 12/07/24 Logged 10:24 Electrocardigram EKG 12/07/24 Logged 11:24 Troponin-I Hs LAB 12/07/24 Logged 13:24 Date of Service: Dec 07, 2024 Billing Provider: LYDIA KHOURY MD Common Visit Codes: [id number] INP/OBS CARE(HIGH) PILI KNIGHT RESIDENT Dec 07, 2024 13:59 LYDIA KHOURY MD Dec 10, 2024 20:55
[2024-12-07 14:21] LABS: COVID19 ANTIGEN SOFIA FIA NEGATIVE (NEGATIVE)
[2024-12-07] MEDS: MORPHINE SULFATE 4 MG/ML SYR/VIAL IV ONE (21:53)
[2024-12-08] VITALS (7 sets, daily range): BP systolic 94–132; BP diastolic 54–80; PULSE 74–101; RESP 13–18; TEMP 96.8–97.9; O2SAT 2–96
[2024-12-08] MEDS: POLYETHYLENE GLYCOL 17 GM PWDR PO ONE (06:42)
--- NOTE | 2024-12-08 07:38 | ECG ---
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
[2024-12-08 07:50] LABS: Hematocrit 33.5 % (36.0-46.0); Hemoglobin 11.3 g/dL (12.2-16.2); Mean Corpuscular Hemoglobin 28.6 pg (28.0-32.0); Mean Corpuscular Volume 84.4 fL (80.0-100.0); Nucleated Red Blood Cells % 0.1 %
[2024-12-08 08:02] LABS: Anion Gap 12 (5-15); Carbon Dioxide 25 mmol/L (20-31); Chloride 104 mmol/L (98-107); Potassium 4.0 mmol/L (3.5-5.1); Sodium 141 mmol/L (136-145)
[2024-12-08 08:04] LABS: Calcium 8.9 mg/dL (8.7-10.4)
[2024-12-08 08:08] LABS: BUN/Creatinine Ratio 27.1 (10.0-20.0); Blood Urea Nitrogen 16 mg/dL (9-23); Glucose 85 mg/dL (74-106)
[2024-12-08] MEDS: LISINOPRIL 5 MG TAB PO SCH (09:01)
[2024-12-08 11:07] LABS: Hepatitis B Surface Antigen Negative (Negative)
[2024-12-08 11:36] LABS: Hepatitis C Antibody Negative (Negative)
--- NOTE | 2024-12-08 13:34 | DVHDSRES ---
Discharge Summary Date of Admission Resident Creating Document: PILI KNIGHT Dec 05, 2024 at 22:17 Date of Discharge: Dec 08, 2024 Admitting Diagnosis abdominal pain and back pain Labs/Diagnostic Data: Laboratory Results Test 12/08/24 10:26 12/08/24 05:36 12/07/24 15:10 12/07/24 13:11 POC Glucose 230 mg/dl (70-106) White Blood Count 5.0 10^3/uL (4.4-10.8) Red Blood Count 3.97 10^6/uL (4.0-5.20) Hemoglobin 11.3 g/dL (12.2-16.2) Hematocrit 33.5 % (36.0-46.0) Mean Corpuscular Volume 84.4 fL (80.0-100.0) Mean Corpuscular Hemoglobin 28.6 pg (28.0-32.0) Mean Corpuscular Hemoglobin Concent 33.8 g/dL (32.0-36.0) Red Cell Distribution Width 13.6 % (11.8-14.3) Platelet Count 277 10^3/uL (140-450) Mean Platelet Volume 8.5 fL (6.9-10.8) Neutrophils (%) (Auto) 52.5 % (37.0-80.0) Lymphocytes (%) (Auto) 35.3 % (10.0-50.0) Monocytes (%) (Auto) 7.2 % (0.0-12.0) Eosinophils (%) (Auto) 3.9 % (0.0-7.0) Basophils (%) (Auto) 1.1 % (0.0-2.0) Neutrophils # (Auto) 2.6 10 ^3/uL (1.6-8.6) Lymphocytes # (Auto) 1.8 10 ^3/uL (0.4-5.4) Monocytes # (Auto) 0.4 10 ^3/uL (0-1.3) Eosinophils # (Auto) 0.2 10 ^3/uL (0-0.8) Basophils # (Auto) 0.1 10 ^3/uL (0-0.2) Nucleated Red Blood Cells 0.1 % Sodium Level 141 mmol/L (136-145) Potassium Level 4.0 mmol/L (3.5-5.1) Chloride Level 104 mmol/L (98-107) Carbon Dioxide Level 25 mmol/L (20-31) Anion Gap 12 (5-15) Blood Urea Nitrogen 16 mg/dL (9-23) Creatinine 0.59 mg/dL (0.550-1.02) Glomerular Filtration Rate Calc 101 mL/min (>90) BUN/Creatinine Ratio 27.1 (10.0-20.0) Serum Glucose 85 mg/dL (74-106) Calcium Level 8.9 mg/dL (8.7-10.4) Troponin I High Sensitivity < 3 ng/L (</=34) Influenza Type A Antigen Negative (Negative) Influenza Type B Antigen Negative (Negative) SARS-CoV-2 Antigen (Rapid) Negative (NEGATIVE) Test 12/06/24 08:27 12/05/24 21:02 12/05/24 19:43 Hemoglobin A1c 7.4 % A1C (<5.7) Phosphorus Level 3.3 mg/dL (2.4-5.1) Magnesium Level 1.7 mg/dL (1.6-2.6) Total Bilirubin 0.4 mg/dL (0.2-1.0) Aspartate Amino Transferase (AST) 14 U/L (13-40) Alanine Aminotransferase (ALT) 10 U/L (7-40) Alkaline Phosphatase 121 U/L (46-116) Total Protein 8.5 g/dL (5.7-8.2) Albumin 5.0 g/dL (3.2-4.8) Lipase 39 U/L (12-53) Vitamin B12 Level 472 pg/mL (211-911) Vitamin D 25-Hydroxy 29.2 ng/mL (30.0-100) Thyroid Stimulating Hormone (TSH) 1.09 uIU/mL (0.55-4.78) Hepatitis B Surface Antigen Negative (Negative) Hepatitis C Antibody Negative (Negative) Urine Color Colorless (Yellow) Urine Clarity Clear (Clear) Urine pH 6.0 (5.0-9.0) Urine Specific [place] 1.009 (1.001-1.035) Urine Protein Negative (Negative) Urine Ketones Negative (Negative) Urine Blood Negative /uL (Negative) Urine Nitrite 1+ (Negative) Urine Bilirubin Negative (Negative) Urine Urobilinogen Normal mg/dL (Negative) Urine Leukocyte Esterase Negative /uL (Negative) Urine RBC 1 /hpf (0 - 4) Urine Microscopic WBC 3 /HPF (0-5) Urine Squamous Epithelial Cells Few /hpf (<5) Urine Bacteria Many /hpf (None Seen) Urine Glucose 4+ mg/dL (Normal) Urine Opiates Screen Neg (NEGATIVE) Urine Fentanyl Screen Neg (NEGATIVE) Urine Barbiturates Screen Neg (NEGATIVE) Urine Phencyclidine Screen Neg (NEGATIVE) Urine Amphetamines Screen Neg (NEGATIVE) Urine Benzodiazepines Screen Neg (NEGATIVE) Urine Cocaine Screen Neg (NEGATIVE) Urine Cannabinoids Screen Neg (NEGATIVE) Other Laboratory Tests 12/08/24 05:36 Brief Hx & Hospital Course: Ms. Moore is a 64-year-old female with a past medical history of type 2 diabetes mellitus, hypertension, hyperlipidemia, urinary incontinence, and recurrent urinary tract infections (UTIs). She presented to the Emergency Department with a 5-day history of sharp, left-sided epigastric abdominal pain radiating to the left flank and back, later involving the right flank. The pain was rated 8/10, aggravated by bending, and associated with a febrile sensation and urinary tenesmus. She denied nausea, vomiting, dysuria, hematuria, chest pain, and other systemic symptoms. She has a history of two prior UTIs requiring hospitalization, including one episode 15 years ago treated with home IV antibiotics. On presentation, the patient was afebrile, mildly tachycardic, and hypertensive. Laboratory evaluation revealed hyperglycemia and a urinalysis suggestive of UTI. CBC was within normal limits. CT abdomen showed a 1 cm nodular lesion near the pancreatic tail, possibly a splenule, with an exophytic pancreatic lesion not excluded. MRI later ruled out a pancreatic mass. Urine cultures were negative except for mixed svitlana. During hospitalization, she reported chest tightness and shortness of breath. ACS was ruled out with serial EKGs and negative troponins. Chest X-ray showed no acute disease but revealed bibasilar atelectasis. Thyroid ultrasound revealed multiple nodules bilaterally; follow-up in one year was recommended due to family history of thyroid cancer. She was treated for a recurrent complicated UTI and acute abdominal/back pain with IV fluids, analgesics, and ceftriaxone. Her diabetes management included carbohydrate-consistent diet and blood glucose monitoring. Blood pressure and lipid levels were managed with continuation of home medications. On evaluation today, she states she is well, pain is manageable. Her vitals have remained stable for discharge home. All medications and recommendations were thoroughly explained and the patient states he understands and agrees. Detailed discussion held with patient at bedside were all questions were answered and concerns were addressed. Examination General: The patient alert and oriented in person place and time. Patient following commands HEENT: Normocephalic, atraumatic, normal reactive pupils, EOM intact, pink conjunctiva, pink moist mucous membrane Respiratory/pulmonary: Bilateral chest expansion, no pain on palpation of chest wall, clear lungs bilaterally, vesicular murmurs present in almost all lung duke, no associated crackles or wheezes. Cardiovascular: Normal RRR, normal S1 and S2, no murmurs Abdomen: Abdomen nondistended, normal bowel sounds, soft, pain to palpation in upper abdominal quadrant, bilateral CVA tenderness, no palpable masses. Extremities: No deformities, there is no peripheral edema present at the lower extremities, normal pulses Skin: No rashes or pruritus, there is no sacral edema present at this time. Neurological: Intact cranial nerves with no focal neurologic deficits Operations or Procedures PATIENT: NATHALIA MOORE ACCT: [id number] UNIT: [id number] : 1960 LOC: [facility] ROOM / BED: [facility] / A AGE / SEX: 64 / F ADM STATUS: ADM IN SERVICE 1142 ORDERING PHYSICIAN: LYDIA KHOURY MD PROCEDURE(s): CXR1 - CHEST XRAY 1 VIEW REASON: cough ORDER NUMBER(s): [id number], ACCESSION NUMBER(s): [id number] CLINICAL INFORMATION: Cough. TECHNIQUE: Single AP portable chest radiograph was obtained. COMPARISON: None FINDINGS: Lungs: Atelectasis in the lung bases. No focal consolidation. No pneumothorax or pleural effusion. Cardiac: Heart size is within normal limits. Pulmonary vasculature: Unremarkable. Mediastinum/ghulam: Unremarkable. Bones: No acute osseous abnormality identified. Other: No other significant findings. IMPRESSION: 1. No evidence of acute disease in the chest. 2. Atelectasis in the lung bases. PATIENT: NATHALIA MOORE ACCT: [id number] UNIT: [id number] : 1960 LOC: [facility] ROOM / BED: 0240 / A AGE / SEX: 64 / F ADM STATUS: ADM IN SERVICE 1040 ORDERING PHYSICIAN: TAMIKA GARRETT RESIDENT PROCEDURE(s): THYDU - THYROID REASON: thyroid nodule ORDER NUMBER(s): [id number], ACCESSION NUMBER(s): [id number] ULTRASOUND SOFT TISSUE HEAD AND NECK CLINICAL INDICATION: thyroid nodule TECHNIQUE: Multiple real time sonographic images of the thyroid were obtained. COMPARISON: Prior exam dated none FINDINGS: RIGHT LOBE OF THE THYROID: Mas[place] 3.9 x 1.2 x 1.4 cm. Parenchyma is heterogeneous 2 nodules right lobe of the thyroid. #1) anechoic nodule measuring 8 x 6 x 3 mm, i anechoic broader fall margins are smooth, no echogenic foci. points=0; TI-RADS 1. Consider FNA when nodule becomes equal to or greater than 1.5 cm #2) cystic/solid, fall, hypoechoic smooth margins, no echogenic foci:points: 2 TI-RADS 2 LEFT LOBE OF THE THYROID: Measures approximately 0.1 X 1 X 1.5 CM cm. Heterogeneous #1) mixed cystic/solid points 2, hypoechoic, points2, wider than tall, ill- defined points=0, echogenic foci, none;points= 4; consider FNA nodule is equal to or greater than 1.5 cm #2) cystic/solid, measures 1.15 x 0.1.2 cm, margins are smooth shape is broader than tall, no echogenic foci; points=2; TI-RADS 2 ISTHMUS: Measures 0.5 cm. Parenchyma heterogeneous #1) measures 8 x 7 x 4 mm; appears solid, wider than tall, , margins are smooth; no echogenic foci; points 4; TI rads 4 recommend FNA lesion equal to or greater than 1.5 cm IMPRESSION: 1. Right lobe of the thyroid measures 3.9 cm. Left lobe of the thyroid measures 4.1 cm 2. Multiple nodules. 3. Recommend follow-up in 1 year [employer] TI-RADS Categories and Recommendations (2017): TR1: 0 points, Benign, No FNA TR2: 2 points, Not suspicious, No FNA TR3: 3 points, Mildly suspicious, FNA if > or = 2.5 cm, Follow if > or = 1.5 cm TR4: 4-6 points, Moderately Suspicious, FNA if > or = 1.5 cm, Follow if > or = 1.0 cm TR5: 7+ points, Highly Suspicious, FNA if > or = 1.0 cm, Follow if > or = 0.5 cm Follow-up ultrasound guidelines: TR5: yearly for 5 years, if no growth or change in TI-RADS level TR4: at 1, 2, 3 and 5 years, if no growth or change in TI-RADS level TR3: at 1, 3 and 5 years, if no growth or change in TI-RADS level If increased but below threshold for FNA, repeat in one year. Source: ACR Thyroid Imaging, Reporting and Data System (TI-RADS): White Paper of the ACR TI-RADS Committee. Truman et al., J Am Latoya Radiol 2017;14:587-595. ATED BY: SUAMN MAY Jr., DO DICTATED DATE/TIME: 12/06/241326 SIGNED BY: SUMAN MAY Jr., SIGNED DATE/TIME: 12/06/241326 - PATIENT: NATHALIA MOORE ACCT: [id number] UNIT: [id number] : 1960 LOC: [facility] ROOM / BED: 0240 / A AGE / SEX: 64 / F ADM STATUS: ADM IN SERVICE 39 ORDERING PHYSICIAN: TAMIKA GARRETT PROCEDURE(s): MRABWWO - MRI ABDOMEN W AND WO REASON: ORDER NUMBER(s): [id number], ACCESSION NUMBER(s): [id number] MRI Abdomen, Pre and Post Contrast Exam Date: 12/06/2024 03:46 PM Comparison: CT dated 12/05/2024 History: pancreatic mass, r/o malignancy Technique: Multisequence multiplanar MRI images of the abdomen were obtained without and with intravenous contrast. Findings: Liver: The liver is normal in size without focal lesions. Normal liver contour. Spleen: A 0.8 cm benign splenule is noted at the splenic hilum/pancreatic tail. Pancreas: The pancreas is normal in appearance without focal lesions. No pancreatic mass. Gallbladder and ducts: Gallbladder is normal in appearance. The cystic duct, right and left hepatic ducts, common hepatic duct, and common bile ducts are unremarkable. The pancreatic duct is within normal limits. Adrenal glands: Unremarkable. Kidneys: A left upper pole renal cyst measures 1.1 cm. Normal enhancement without suspicious lesions or hydronephrosis. Visualized bowel: Grossly unremarkable. Vasculature: Unremarkable. Lymphadenopathy: No evidence for lymphadenopathy. Ascites: Absent. Musculoskeletal: Bone marrow signal is normal. Additional Dependent atelectasis. IMPRESSION: No pancreatic mass. No acute abnormality. PATIENT: NATHALIA MOORE ACCT: [id number] UNIT: [id number] : 1960 LOC: ER ROOM / BED: / AGE / SEX: 64 / F ADM STATUS: REG ER SERVICE 31 ORDERING PHYSICIAN: DIANNA GREEN PROCEDURE(s): ABPL - CT AB PEL WO CON-NO ORAL OR IV REASON: diffuse abd pain ORDER NUMBER(s): [id number], ACCESSION NUMBER(s): [id number] Exam: CT CT AB PEL WO CON-NO ORAL OR IV History: diffuse abd pain Comparison Study: None TECHNIQUE: Multidetector CT of the abdomen AND PELVIS without IV contrast. Axial, coronal and sagittal multiplanar reformats were obtained from the axial data set by the technologist. Radiation Dose Information: CT Dose: CTDI volume is 11.54 mGy. Dose-length product is 598.67 mGy*cm FINDINGS: Bibasilar scarring with bronchiectasis. Heart size is within normal limits. Trace pericardial effusion. Liver, spleen, gallbladder, and adrenal glands are unremarkable. 1 cm nodular lesion abutting the pancreatic tail which may represent a small splenule with an exophytic pancreatic lesion not completely excluded. Otherwise, pancreas is unremarkable. Kidneys, ureters and urinary bladder are unremarkable. Uterine wall calcification. Otherwise, uterus and adnexa unremarkable. Gaseous distention of the distal esophagus. Mild gastric wall thickening is most likely from inadequate distention. Small bowel loops are unremarkable. Appendix is unremarkable. Large amount of fecal material within the ascending and transverse colons with small to moderate amount of fecal material within the remainder of the colon. No evidence of intraperitoneal free air or free fluid. No evidence of aortic aneurysm. Mild atherosclerotic calcification of the aorta. No significant lymphadenopathy. Small fat containing umbilical hernia. Minimal body wall wall edema. No evidence of acute osseous abnormalities. IMPRESSION: No evidence of acute abdominopelvic abnormalities. 1 cm nodular lesion abutting the pancreatic tail which may represent a small splenule with an exophytic pancreatic lesion not completely excluded. Trace pericardial effusion. Bibasilar fibrotic changes. PATIENT: NATHALIA MOORE ACCT: [id number] : 1960 LOC: [facility] ROOM / BED: [facility]0 / A AGE / SEX: 64 / F ADM STATUS: ADM IN SERVICE UNIT: [id number] ORDERING PHYSICIAN: PILI KNIGHT PROCEDURE(s): EKG - ELECTROCARDIGRAM ORDER NUMBER(s): [id number], ACCESSION NUMBER(s): [id number]: 2024-12-07 Test Time: 16:33:18 Pat Name: NATHALIA MOORE Department: Room: [facility] A Gender: F Credit Support Specialist: Purnima Jaeger RN : 1960 Requested By: PILI KNIGHT Order Number: [id number] Reading MD: Measurements Intervals [place] Rate: 95 P: 21 [place]: 138 QRS: -19 QRSD: 83 T: -6 QT: 341 QTc: 429 Interpretive Statements Sinus rhythm Inferior infarct, old Please click the below link to view image of tracing. DICTATED BY: DICTATED DATE/TIME:12/07/24 1633 ELECTRONICALLY SIGNED BY: ELECTRONICALLY CO-SIGNED BY: - PATIENT: NATHALIA MOORE ACCT: [id number] : 1960 LOC: [facility] ROOM / BED: [facility] / A AGE / SEX: 64 / F ADM STATUS: ADM IN SERVICE UNIT: [id number] ORDERING PHYSICIAN: TAMIKA GARRETT PROCEDURE(s): EKG - ELECTROCARDIGRAM ORDER NUMBER(s): [id number], ACCESSION NUMBER(s): [id number] Test Date: 2024-12-06 Test Time: 13:34:08 Pat Name: NATHALIA MOORE Department: Room: 0240 A Gender: F Credit Support Specialist: Purnima oHffmann RN : 1960 Requested By: TAMIKA CLAROS Order Number: [id number] Reading MD: Measurements Intervals [place] Rate: 76 P: 34 [place]: 134 QRS: -12 QRSD: 75 T: 21 QT: 410 QTc: 462 Interpretive Statements Sinus rhythm Inferior infarct, old Please click the below link to view image of tracing. DICTATED BY: DICTATED DATE/TIME:12/06/24 1334 ELECTRONICALLY SIGNED BY: ELECTRONICALLY CO-SIGNED BY: - Condition at Discharge: Stable Final Diagnosis/Problems List Recurrent complicated UTI R/o Pyelonephritis Acute intractable abdominal pain and back pain Pancreatic nodule Ruled out ACS Uncontrolled type 2 diabetes mellitus with hyperglycemia, HbA1c 7.4 Thyroid nodule Essential hypertension Hyperlipidemia Urinary Incontinence Discharge Disposition: Home Discharge Instruct/Medications Diet: Regular Activity: No Restrictions, As Tolerated Follow Up/Referral: Follow up with PCP within 1-2 weeks Medications: continue home medications: Glyburide 8mg PO daily #2 TAB, Lisinipril 5 Mg PO daily 30 days mg, Metformine hydrochloride 1,000 Mg PO BID 30 Days MG, Oxybutynin Chloride 5 mg PO BID, Trazodone Hcl 1 Tab PO QPM #30 TAB Ref 1 Scheduled Glyburide (Glyburide), 8 MG PO DAILY, (Reported) Lisinopril (Lisinopril), 5 MG PO DAILY, (Reported) Metformin Hydrochloride (Metformin Hcl), 1,000 MG PO BID, (Reported) Nitrofurantoin (Nitrofurantoin), 100 MG PO BID Oxybutynin Chloride (Oxybutynin Chloride), 5 MG PO BID, (Reported) Trazodone Hcl (Trazodone Hcl), 1 TAB PO QPM, (Reported) Scheduled PRN Cyclobenzaprine Hcl (Cyclobenzaprine Hcl), 5 MG PO BIDP PRN Discharge Statement: "Patient was advised to return to the ER or call 911 if any headaches, dizziness, shortness of breath, chest pain, abdominal pain, bleeding, fevers, or worsening of medical condition. Patient was counseled about treatment plan, medications, possible side effects, patientverbalized understanding. All questions were answered to the best of my ability. This discharge took greater then 30 minutes in planning, reviewing documentation, counseling the patient, and discussing with other team members." ASSESSMENT ASSESSMENT Assessment Recurrent complicated UTI R/o Pyelonephritis Acute intractable abdominal pain and back pain Pancreatic nodule Ruled out ACS Uncontrolled type 2 diabetes mellitus with hyperglycemia, HbA1c 7.4 Thyroid nodule Essential hypertension Hyperlipidemia Urinary Incontinence Date of Service: Dec 08, 2024 Billing Provider: LYDIA KHOURY MD Common Visit Codes: 21445-AHK/OBS DISCH DAY >30min LAUREEN ALVAREZ RESIDENT Dec 08, 2024 13:34 LYDIA KHOURY MD Dec 10, 2024 20:56
[2024-12-08] MEDS ORDERED: NITR-52 PO (14:29)
[2024-12-08] MEDS ORDERED: CYCL-837 PO (15:25)
== END 2024-12-08 18:00 | disposition home or self-care (01) | DRG 463 ==
LOC: ER 18:25 → OVERFLOW 22:17 → EAST 23:25
PROVIDERS: ADMIT Internal Medicine Geriatric Medicine; ATTEND Internal Medicine Geriatric Medicine
DX: N39.0 Urinary tract infection, site not specified (principal); E04.1 Nontoxic single thyroid nodule; N12 Tubulo-interstitial nephritis, not specified as acute or chronic; K86.9 Disease of pancreas, unspecified; E78.5 Hyperlipidemia, unspecified; E11.65 Type 2 diabetes mellitus with hyperglycemia; Z20.822 Contact with and (suspected) exposure to COVID-19; I10 Essential (primary) hypertension; R32 Unspecified urinary incontinence; Z80.0 Family history of malignant neoplasm of digestive organs; Z80.8 Family history of malignant neoplasm of other organs or systems
CPT/HCPCS: 36415; 71045; 74176; 74183; 76536; 80048; 80053; 80307; 81001; 82306; 82607; 82962; 83036; 83690; 83735; 84100; 84443; 84484; 85025; 86301; 86803; 87040; 87086; 87340; 87426; 87804; 93005; 96361; 96365; 96372; 96375; G0378; J1815; J2405